=== PATIENT | male | born 1985 | race Caucasian/White ===

== ENCOUNTER 2021-12-01 19:40 | Emergency (ER) | payer OTHER, SELFPAY | END 2021-12-01 20:05 | disposition left against medical advice (07) | PROVIDERS: Emergency Provider Emergency Medicine; PCP Family Medicine | DX: M79.89 Other specified soft tissue disorders (principal) ==

== ENCOUNTER 2022-12-30 15:15 | Emergency (ER) | payer OTHER, SELFPAY ==
--- NOTE | ~2022-12-30 | US_ITS ---
EXAMINATION: US VENOUS ULTRASOUND WITH DOPPLER LOWER EXTREMITY, BILATERAL CLINICAL INFORMATION: Bilateral leg swelling. COMPARISON: None available. TECHNIQUE: Ultrasound of the deep veins is performed from the hip to the calf with compression sonography and color and pulse Doppler assessment. Spectral analysis with color-flow imaging is performed. FINDINGS: Right Lower Extremity: Respiratory variation, normal compression and augmented flow are noted throughout the right lower extremity. The visualized common femoral vein, superficial femoral vein, profunda femoral vein, popliteal vein and midcalf peroneal and posterior tibial venous segments show no evidence of deep venous thrombosis. Flow is demonstrated within moderate varicosities of the right calf. There is no Thompson's cyst. Moderate cutaneous/subcutaneous edema of the right calf. Moderately prominent reniform lymph nodes within the right inguinal region, measuring up to 0.9 cm in short axis. Left Lower Extremity: Respiratory variation, normal compression and augmented flow are noted throughout the left lower extremity. The visualized common femoral vein, superficial femoral vein, profunda femoral vein, popliteal vein and midcalf peroneal and posterior tibial venous segments show no evidence of deep venous thrombosis. There is no Thompson's cyst. Moderate cutaneous/subcutaneous edema of the left calf. Moderately prominent reniform lymph nodes within the left inguinal region, measuring up to 1.1 cm in short axis. If the patient's symptoms persist, followup ultrasound in 5 days 7 days might be of value to exclude proximal propagation from a non-visualized calf vein. US/US venous duplex LE BI IMPRESSION: No DVT demonstrated in the bilateral lower extremity. Moderate cutaneous/subcutaneous edema of the bilateral calves. Patent moderate varicosities of the right calf.
[2022-12-30 15:18] VITALS: BP 133/85; PULSE 66; RESP 16; TEMP 36.9; O2SAT 100; BMI 27.8
--- NOTE | 2022-12-30 16:36 | ED_ITS ---
HPI - Extremity Injury (Lower) General Chief Complaint: Extremity Injury, Lower Stated Complaint: Swollen Legs x3days Time Seen by Provider: 12/30/22 16:04 History of Present Illness HPI Narrative: Patient is a 37-year-old male with a history of polysubstance abuse. Patient states that he snorts heroin. Been using drugs for a while. Complaining of bilateral lower extremity edema. Patient denies any fever chills. Noticed redness and swelling to the legs bilaterally. Patient is homeless. Last 3 days because of the redness and swelling he has been staying at a friend's house. Patient denies any coughing congestion upper respiratory symptoms. Denies any chest pain any shortness of breath. Positive generalized malaise Related Data Previous Rx's Medication Instructions Recorded doxycycline hyclate 100 mg capsule 100 mg PO BID cough 7 days #14 caps 12/30/22 Allergies Allergy/AdvReac Type Severity Reaction Status Date / Time No Known Allergies Allergy Unverified 06/30/20 18:35 Review of Systems Review of Systems: Positive bilateral lower extremity edema, redness PMFSH Past Medical History Attestation statement: The following information was validated with the patient. Social History Social History Advance Directives: No Advance Directives Information Provided: No Physical Exam Vital Signs: Vital Signs: Last Vital Signs Temp 98.4 F 12/30/22 15:18 Pulse 66 12/30/22 15:18 Resp 16 12/30/22 15:18 BP 133/85 12/30/22 15:18 Pulse Ox 100 12/30/22 15:18 O2 Del Method 12/30/22 15:18 BMI result Body Mass Index 27.8 Appearance: Alert. Oriented X3. No acute distress. Eyes: Pupils equal, round and reactive to light. ENT: Pharynx normal. Neck: Normal inspection. Neck supple. No lymph nodes noted. No crepitus CVS: Normal heart rate and rhythm. Pulses normal. Normal S1 and S2 Respiratory: No respiratory distress. Breath sounds normal. No Wheezing. No rales Abdomen: Soft and nontender. No rigidity. No distention. good BS x4 Skin: Warm red bilateral lower extremity with 2+ pitting edema circumferential redness going down to the foot bilaterally. The rash blanches. Both lower extremities approximately equal in size. Sensation grossly intact. Pulses at dorsalis pedis intact. Movement at the ankles and the knees intact. Extremities: No lower extremity edema. Neurovascular intact to all extremities. No Lacerations. No Rash Neuro: Oriented X 3. No motor deficit. No sensory deficit. Moving all exte rmities. No slurred speech Medications Administered Discontinued Medications Generic Name Dose Route Start Last Admin Trade Name Freq PRN Reason Stop Dose Admin Ceftriaxone Sodium 1 gm/ 50 mls @ 100 mls/hr 12/30/22 16:34 12/30/22 17:33 Sodium Chloride IV 12/30/22 17:03 Infused ONCE ONE Infusion Medical Decision Making Medical Decision Making [facility] Narrative: Patient's BMP is normal. There is no evidence for congestive heart failure. Positive redness swelling to the legs. Question secondary to cellulitis. Dop pler studies were negative. No evidence for DVT. Given a dose of Rocephin will start patient on doxycycline on an outpatient basis. Warm soak elevate for possible cellulitis. Close follow-up. Asked patient to stop using narcotics. Patient did not want any help at this time did not want. States that has follow-up with his primary physician. Discharged in stable condition Lab Data [facility] Lab Attestation statement: I reviewed the patient's lab results. 12/30/22 16:46 12/30/22 16:46 Labs: Lab Results 12/30/22 12/30/22 12/30/22 Range/Units 16:46 16:46 16:46 WBC 5.1 (4.8-10.8) X10*3/uL RBC 4.27 L (4.60-5.80) X10*6/uL Hgb 12.7 L (14.0-18.0) g/dl Hct 38.5 L (42.0-52.0) % MCV 90.2 (80.0-98.0) fL MCH 29.7 (27.0-33.0) pg MCHC 33.0 (31.0-36.0) g/dl RDW 13.3 (11.0-16.0) % Plt Count 229 (160-400) X10*3/uL MPV 9.5 (9.4-12.4) fL Immature Gran % (Auto) 0.8 H (0.0-0.4) % Neut % (Auto) 56.4 (45-73) % Lymph % (Auto) 26.7 (20-40) % Roane % (Auto) 12.1 H (2-11) % Eos % (Auto) 3.2 (0-4) % Baso % (Auto) 0.8 (0-2) % Lymph # (Auto) 1.4 (1.2-4.9) X10*3/uL Roane # (Auto) 0.6 (0.1-1.2) X10*3/uL Eos # (Auto) 0.2 (0.0-0.4) X10*3/uL Baso # (Auto) 0.0 (0.0-0.2) X10*3/uL Abs Immat Gran (auto) 0.04 H (0.00-0.03) X10*3/uL Absolute Neuts (auto) 2.9 (2.0-8.3) x10*3/uL Absolute Nucleated RBC 0.000 (0.0-0.012) X10*3/uL Nucleated RBC % (auto) 0.0 (0.0-0.2) /100WBC Lactic Acid 0.9 (0.5-2.0) mmol/L B-Natriuretic Peptide 16 (<100) pg/mL External Record Review External record reviewed: Inpatient record Social Determinants Patient?s care significantly limited by Social Determinants of Health including: Inadequate housing and Low income Discharge Plan Discharge Clinical Impression: Cellulitis Patient Disposition: Home, Self-Care Instructions: Cellulitis (ED) Prescriptions: New doxycycline hyclate 100 mg capsule 100 mg PO BID 7 Days Qty: 14 0RF Referrals: Zulma Willis MD [Primary Care Provider] -
[2022-12-30 16:59] LABS: MANUAL DIFF FLAG NO
[2022-12-30] MEDS: cefTRIAXone sodium 1 GM in 0.9 % Sodium Chloride 50 ML IV (17:06)
[2022-12-30 17:11] LABS: Lactic Acid 0.9 mmol/L (0.5-2.0)
[2022-12-30 17:22] LABS: B Type Natriuretic Peptide 16 pg/mL (<100)
[2022-12-30 17:35] LABS: Basophils Percent Auto 0.8 % (0-2); Eosinophils Absolute Auto 0.2 X10*3/uL (0.0-0.4); Eosinophils Percent Auto 3.2 % (0-4); Hematocrit 38.5 % (42.0-52.0); Hemoglobin 12.7 g/dl (14.0-18.0); Imm Gran Abs Auto 0.04 X10*3/uL (0.00-0.03); Imm Gran Pct Auto 0.8 % (0.0-0.4); Lymphocytes Absolute Auto 1.4 X10*3/uL (1.2-4.9); Lymphocytes Percent Auto 26.7 % (20-40); Mean Corpuscular Hemoglobin 29.7 pg (27.0-33.0); Mean Corpuscular Volume 90.2 fL (80.0-98.0); Mean Platelet Volume 9.5 fL (9.4-12.4); Monocytes Absolute Auto 0.6 X10*3/uL (0.1-1.2); Monocytes Percent Auto 12.1 % (2-11); Neutrophils Absolute Auto 2.9 x10*3/uL (2.0-8.3); Neutrophils Percent Auto 56.4 % (45-73); Platelet Count 229 X10*3/uL (160-400); Red Blood Count 4.27 X10*6/uL (4.60-5.80); Red Cell Distribution Width 13.3 % (11.0-16.0); White Blood Count 5.1 X10*3/uL (4.8-10.8)
[2022-12-30 20:00] VITALS: BP 128/74; PULSE 69; RESP 18; TEMP 36.7; O2SAT 100
[2022-12-30 20:01] LABS: Alanine Aminotransferase 16 U/L (0-40); Albumin Level 3.4 g/dL (3.5-5.0); Alkaline Phosphatase 67 U/L (39-117); Anion Gap 10 (12-20); Aspartate Amino Transferase 16 U/L (5-37); Bilirubin Direct < 0.2 mg/dL (0.0-0.5); Bilirubin Total 0.2 mg/dL (0.0-1.0); Blood Urea Nitrogen 14 mg/dL (9-16); Calcium 8.5 mg/dL (8.4-10.2); Carbon Dioxide 26 mmol/L (22-29); Chloride 107 mmol/L (96-108); Creatinine Clr Calc Pharmacy 170.7; Estimated Glomerular Filt Rate > 60; Glucose Random 85 mg/dL (60-115); Potassium 4.4 mmol/L (3.3-5.1); Sodium 139 mmol/L (135-145); Total Protein 5.6 g/dL (6.5-8.0)
== END 2022-12-30 22:19 | disposition home or self-care (01) ==
PROVIDERS: Emergency Provider Emergency Medicine Emergency Medical Services; PCP Family Medicine
DX: R60.0 Localized edema (principal); L03.116 Cellulitis of left lower limb; L03.115 Cellulitis of right lower limb; R06.02 Shortness of breath; Z79.899 Other long term (current) drug therapy
CPT/HCPCS: 36415; 80048; 80076; 83605; 83880; 85025; 87040; 93970; 96374; 99284; J0696